=== PATIENT | male | born 1940 | race African-American/Black ===

== ENCOUNTER 2016-10-02 17:22 | Emergency (ER) | payer OTHER ==
[~2016-10-02] VITALS: Ht 180.3 cm; Wt 54.4 kg
--- NOTE | 2016-10-02 17:45 | NUR ---
PT TRINITY LOPEZ [facility], WAS EN ROUTE TO [facility] WHEN PT'S OWN TRACH CAME OFF. NAD NOTED. PT AAO X3, VSS. RR EVEN AND UNLABORED. STOMA SITE INTACT. NO ACTIVE BLEEDING. PENDING MD NICOLAS.
--- NOTE | 2016-10-02 18:00 | NUR ---
PAGED ENT DR CREWS/ DR MILLER FOR CALL BACK
--- NOTE | 2016-10-02 18:03 | NUR ---
AWA Thompson RT AT BEDSIDE
[2016-10-02] MEDS ORDERED: METO5AMP2 IV (18:04)
[2016-10-02] MEDS ORDERED: INSU100V3 SQ (18:04)
[2016-10-02] MEDS ORDERED: AMLO10TA2 GT (18:04)
[2016-10-02] MEDS ORDERED: PANT40VI IV (18:04)
[2016-10-02] MEDS ORDERED: LORA2VIA6 IV (18:04)
[2016-10-02] MEDS ORDERED: BISA10SU8 RC (18:04)
[2016-10-02] MEDS ORDERED: ACET650S26 GT (18:04)
[2016-10-02] MEDS ORDERED: LACT-209 GT (18:04)
[2016-10-02] MEDS ORDERED: THIA100T13 GT (18:04)
[2016-10-02] MEDS ORDERED: DIGO125T GT (18:04)
[2016-10-02] MEDS ORDERED: BLOO-668 IN (18:04)
[2016-10-02] MEDS ORDERED: ALBU2.5V38 IH ×2 (18:04)
[2016-10-02 18:29] LABS: BASOPHILS % (AUTO) 0.3 % (0.0-2.0); EOSINOPHILS # (AUTO) 0.1 /CMM (0.0-0.7); EOSINOPHILS % (AUTO) 0.5 % (0.0-6.0); HEMATOCRIT 29 % (39-51); HEMOGLOBIN 9.6 g/dL (13.5-17.5); LYMPHOCYTES # (AUTO) 2.7 /CMM (0.8-4.8); LYMPHOCYTES % (AUTO) 18.4 % (20.0-44.0); MEAN CORPUSCULAR HEMOGLOBIN 31 PG (26.0-33.0); MEAN CORPUSCULAR HGB CONC 34 g/dl (31.0-36.0); MEAN CORPUSCULAR VOLUME 92 fL (80-96); MONOCYTES # (AUTO) 1.5 /CMM (0.1-1.30); MONOCYTES % (AUTO) 9.9 % (2.0-12.0); NEUTROPHILS # (AUTO) 10.6 /CMM (1.8-8.9); NEUTROPHILS % (AUTO) 70.9 % (43.0-81.0); PLATELET COUNT (AUTO) 225 /CMM (150-450); RDW COEFFICIENT OF VARIATION 15.3 (11.5-15.0); RED BLOOD CELL COUNT(AUTO) 3.11 MIL/uL (4.5-6.0); WHITE BLOOD COUNT (AUTO) 14.9 K/uL (4.3-11.0)
[2016-10-02 18:42] LABS: INR 1.07 (0.87-1.13); PROTHROMBIN TIME 11.1 SECS (9.5-12.7)
[2016-10-02 18:43] LABS: CALCIUM, SERUM 9.6 mg/dL (8.5-10.1); CARBON DIOXIDE 29 mmol/L (21-32); CHLORIDE 99 mmol/L (98-107); CREATININE 0.6 mg/dL (0.6-1.3); GLUCOSE 109 mg/dL (74-106); POTASSIUM 4.7 mmol/L (3.5-5.1); SODIUM SERUM 135 mmol/L (136-145); UREA NITROGEN, BLOOD 17 mg/dL (7-18)
--- NOTE | 2016-10-02 19:30 | NUR ---
MADE CALL TO [facility] TO INITIATE A TRANSFER FOR HIGHER LEVEL OF CARE.
--- NOTE | 2016-10-02 19:55 | NUR ---
SPOKE WITH JONNIE WITH [facility] AND DR RIVERA WITH [facility] WILL CALL US BACK
--- NOTE | 2016-10-02 20:15 | NUR ---
CONTACTED DR MIGUEL CRISTINA AT [facility]. TRANSFERRED CALL TO DR CRAMER.
--- NOTE | 2016-10-02 20:28 | NUR ---
PER DR RIVERA WITH [facility], WE CAN TRANSFER PT TO [facility] FOR HIGHER LEVEL OF CARE PENDING THEIR ACCEPTANCE OF THE PT
--- NOTE | 2016-10-02 20:32 | NUR ---
CONTACTED NURSING SENIOR NET ARCHITECT ERIN AT [facility]. WILL FAX CLINICAL INFORMATION TO [phone]. PER ERIN SHE WILL REFER THE INFORMATION TO THEIR ADMITTING PHYSICIAN.
--- NOTE | 2016-10-02 20:59 | NUR ---
CALLED NURSING CLIENT SUCCESS DIRECTOR ERIN TO FOLLOW UP. SHE STILL HASNT HEARD BACK FROM THE ADMITTING PHYSICIAN AND WILL CALL US BACK.
--- NOTE | 2016-10-02 21:05 | NUR ---
FOLLOWED UP AGAIN WITH MART AT [facility]. SHE IS UNABLE TO GET A HOLD OF AN ENT AT HER HOSPITAL AND IS STILL WORKING ON IT.
--- NOTE | 2016-10-02 21:48 | NUR ---
CALLED NUMBER FOR NURSING BOX STACKER AT [facility] AND RECEIVED NO RESPONSE
--- NOTE | 2016-10-02 21:52 | NUR ---
LEFT ANOTHER MESSAGE WITH ENT GROUP OF DR CREWS/ DR ADRIAN
--- NOTE | 2016-10-02 22:06 | NUR ---
FOLLOWED UP AGAIN WITH MART AT [facility]. SHE IS UNABLE TO GET A HOLD OF AN ENT AT HER HOSPITAL AND IS STILL WORKING ON IT.
--- NOTE | 2016-10-02 22:31 | NUR ---
CALLED [facility] TO INITIATE HIGHER LEVEL OF CARE TRANSFER. FAXED FACE SHEET TO [phone].
--- NOTE | 2016-10-02 23:07 | NUR ---
PT GOING TO [facility] ER. ACCEPTED BY DR PATEL. NUMBER FOR REPORT [phone]. [facility]#[id number].
[2016-10-02 23:11] VITALS: BP 141/59
--- NOTE | 2016-10-02 23:12 | NUR ---
CALLED [facility] FOR ALS TRANSPORT TO [facility]. ETA 45 MINUTES
--- NOTE | 2016-10-02 23:20 | NUR ---
REPORT GIVEN TO JADEN LEGGETT FOR [facility]
--- NOTE | 2016-10-02 23:43 | NUR ---
REPORT GIVEN TO EMT FOR TRANSPORT
== END 2016-10-02 23:44 ==
LOC: ER 17:25
DX: Z46.82 Encounter for fitting and adjustment of non-vascular catheter (principal); J95.03 Malfunction of tracheostomy stoma; D64.9 Anemia, unspecified; D72.829 Elevated white blood cell count, unspecified; I10 Essential (primary) hypertension; J44.9 Chronic obstructive pulmonary disease, unspecified; Z98.890 Other specified postprocedural states
CPT/HCPCS: 36415; 71010-TC; 80048-TC; 85025-TC; 85730-TC; A4606; Z7610

== ENCOUNTER 2016-10-25 16:09 | Emergency (ER) | payer OTHER ==
[~2016-10-25] VITALS: Ht 167.6 cm; Wt 72.6 kg
[~2016-10-25 16:09] MED LIST: ACET650S26 GT; ALBU2.5V38 IH; AMLO10TA2 GT; BISA10SU8 RC; BLOO-668 IN; DIGO125T GT; INSU100V3 SQ; LACT-209 GT; LORA2VIA6 IV; METO5AMP2 IV; PANT40VI IV; THIA100T13 GT
[2016-10-25] MEDS ORDERED: DIATR MEGLU/DIATRIZOATE SODIUM 30 ML BOTTLE (GASTROGRAPHIN) ONE (16:21)
--- NOTE | 2016-10-25 16:51 | NUR ---
PT REC'D TO ER VIA [facility]/O GT OUT AWAITING EVALUATION BY ER PROVIDER.
--- NOTE | 2016-10-25 16:55 | NUR ---
CHEST XRAY DONE
--- NOTE | 2016-10-25 17:40 | NUR ---
CALLED [facility] FOR TRANSPORT, ETA OF 1900 WAS GIVEN.
--- NOTE | 2016-10-25 17:43 | NUR ---
PT SSTABLE GTUBE IONPLACE TRANSPORTAION CCALLE D
[2016-10-25 18:34] VITALS: BP 129/82
== END 2016-10-25 18:42 ==
LOC: ER 16:10
DX: Z43.1 Encounter for attention to gastrostomy (principal); I10 Essential (primary) hypertension; J44.9 Chronic obstructive pulmonary disease, unspecified; Z93.1 Gastrostomy status; Z98.890 Other specified postprocedural states; F17.200 Nicotine dependence, unspecified, uncomplicated
CPT/HCPCS: 74000-TC; A4606; Q9963

== ENCOUNTER 2016-10-25 23:52 | Emergency (ER) | payer OTHER ==
[~2016-10-25] VITALS: Ht 180.3 cm; Wt 52.2 kg
[2016-10-25 23:54] VITALS: BP 123/66
[2016-10-26] MEDS ORDERED: LIDOCAINE VISCOUS 2% UD 15 ML UDC ONE (00:02)
[2016-10-26] MEDS ORDERED: DIATR MEGLU/DIATRIZOATE SODIUM 30 ML BOTTLE (GASTROGRAPHIN) ONE (00:08)
== END 2016-10-26 00:23 | disposition home or self-care (01) ==
LOC: ER 23:53
DX: Z43.1 Encounter for attention to gastrostomy (principal); I10 Essential (primary) hypertension; J44.9 Chronic obstructive pulmonary disease, unspecified; Z98.890 Other specified postprocedural states; F17.200 Nicotine dependence, unspecified, uncomplicated
CPT/HCPCS: 74000-TC; A4606; Q9963; Z7610

== ENCOUNTER 2016-10-27 19:26 | Emergency (ER) | payer OTHER ==
[~2016-10-27] VITALS: Ht 177.8 cm; Wt 79.4 kg
--- NOTE | 2016-10-27 19:30 | NUR ---
MD DACOSTA AT FOR GT RE INSERTION
--- NOTE | 2016-10-27 19:34 | NUR ---
BARBER FROM [facility] FOR TUBE RE INSERTION. NO S/SX OF INFECTION. VSS
[2016-10-27] MEDS ORDERED: DIATR MEGLU/DIATRIZOATE SODIUM 30 ML BOTTLE (GASTROGRAPHIN) ONE (19:57)
[2016-10-27] MEDS ORDERED: DIATR MEGLU/DIATRIZOATE SODIUM 30 ML BOTTLE (GASTROGRAPHIN) PO ONE (20:00)
--- NOTE | 2016-10-27 20:00 | NUR ---
JESUS GREGORIO AT BS FOR GT PLACEMENT VERIFICATION
--- NOTE | 2016-10-27 20:47 | NUR ---
[facility] CALLED ETA 45 MIN.
[2016-10-27 22:17] VITALS: BP 103/80
--- NOTE | 2016-10-27 22:40 | NUR ---
PATIENT WAS PICKED UP BY [facility]ARD[facility]- [facility]. ENDORSED. VSS
== END 2016-10-27 22:43 | disposition home or self-care (01) ==
LOC: ER 19:27
DX: Z46.59 Encounter for fitting and adjustment of other gastrointestinal appliance and device (principal); K94.23 Gastrostomy malfunction; I10 Essential (primary) hypertension; J44.9 Chronic obstructive pulmonary disease, unspecified; Z93.1 Gastrostomy status
CPT/HCPCS: 43760; 74000; 99284; A4606; Q9963 ×2; Z7610